=== PATIENT | male | born 1985 | race American Indian/Alaskan Native ===

== ENCOUNTER 2017-01-16 12:56 | Outpatient (CLI) | payer MEDICAID ==
[2017-01-16 13:30] LABS: BUN/Creatinine Ratio 5.44; Chloride 95.5 mmol/L (98-107); Potassium 5.3 mmol/L (3.6-5.0)
== END 2017-01-16 12:57 | disposition home or self-care (01) ==
LOC: LAB 12:56
PROVIDERS: ATTEND Internal Medicine Nephrology
DX: I12.0 Hypertensive chronic kidney disease with stage 5 chronic kidney disease or end stage renal disease (principal); N18.6 End stage renal disease; F17.200 Nicotine dependence, unspecified, uncomplicated
CPT/HCPCS: 36415; 80048

== ENCOUNTER 2018-07-31 06:12 | Emergency (ER) | payer MEDICAID ==
[2018-07-31 06:17] VITALS: BP 181/118
== END 2018-07-31 06:30 | disposition left against medical advice (07) ==
LOC: ED 06:12
DX: R06.00 Dyspnea, unspecified (principal); Z53.21 Procedure and treatment not carried out due to patient leaving prior to being seen by health care provider
CPT/HCPCS: 93005; 93010